=== PATIENT | female | born 1955 | race Caucasian/White ===

== ENCOUNTER 2016-07-29 05:56 | Day surgery (SDC) | payer MEDICARE, OTHER ==
[2016-07-22 12:30] LABS: APPEARANCE,URINE CLEAR; BILIRUBIN,URINE NEGATIVE (NEGATIVE); GLUCOSE, URINE NEGATIVE (NEGATIVE); KETONES,URINE NEGATIVE (NEGATIVE); LEUKOCYTE ESTERASE,URINE NEGATIVE (NEGATIVE); NITRITE,URINE NEGATIVE (NEGATIVE); PROTEIN,URINE NEGATIVE (NEGATIVE); URINE SPECIFIC GRAVITY 1.017; UROBILINOGEN,URINE NEGATIVE mg/dL (<2.0)
[2016-07-22 12:32] LABS: HEMATOCRIT 40.9 % (36.0-47.0); HGB HCT DIFFERENCE 1.1; MEAN CORPUSCULAR HEMOGLOBIN 29.7 pg (27.0-33.4); MEAN CORPUSCULAR HGB CONC 34.2 g/dL (32.0-36.0); MEAN CORPUSCULAR VOLUME 87 fl (80-97); RED BLOOD COUNT 4.71 10^6/uL (3.72-5.28); RED CELL DISTRIBUTION WIDTH 12.2 % (11.5-14.0); WHITE BLOOD COUNT 4.8 10^3/uL (4.0-10.5)
[2016-07-22 12:34] LABS: PROTHROMBIN TIME 12.3 SEC (11.4-15.4)
[2016-07-22 12:35] LABS: PARTIAL THROMBOPLASTIN TIME 25.9 SEC (23.5-35.8)
[2016-07-22 12:59] LABS: ANION GAP 9 (5-19); BLOOD UREA NITROGEN 21 mg/dL (7-20); CALCIUM 9.2 mg/dL (8.4-10.2); CARBON DIOXIDE 31 mmol/L (22-30); CHLORIDE 102 mmol/L (98-107); CREATININE RESULT 0.54 mg/dL (0.52-1.25); GLUCOSE 79 mg/dL (75-110); POTASSIUM 4.1 mmol/L (3.6-5.0); SODIUM 141.8 mmol/L (137-145)
--- NOTE | 2016-07-22 16:59 | EKG REPORT ---
SEVERITY:- NORMAL ECG - SINUS RHYTHM : Confirmed by: Mary Jimenez MD 22-Jul-2016 16:58:17
[2016-07-24 12:31] LABS: ABSOLUTE EOSINOPHILS # (AUTO) 0.1 10^3/uL (0.0-0.6); ABSOLUTE LYMPHOCYTES (AUTO) 2.1 10^3/uL (0.5-4.7); ABSOLUTE MONOCYTES (AUTO) 0.4 10^3/uL (0.1-1.4); ABSOLUTE NEUT (AUTO) 2.7 10^3/uL (1.7-8.2); BASOPHILS % (AUTO) 0.5 % (0-2); EOSINOPHILS % (AUTO) 2.5 % (0-6); HEMATOCRIT 41.4 % (36.0-47.0); HEMOGLOBIN 14.3 g/dL (12.0-15.5); HGB HCT DIFFERENCE 1.5; LYMPHOCYTES % (AUTO) 38.8 % (13-45); MEAN CORPUSCULAR HEMOGLOBIN 29.8 pg (27.0-33.4); MEAN CORPUSCULAR HGB CONC 34.7 g/dL (32.0-36.0); MEAN CORPUSCULAR VOLUME 86 fl (80-97); MONOCYTES % (AUTO) 8.2 % (3-13); RED BLOOD COUNT 4.82 10^6/uL (3.72-5.28); RED CELL DISTRIBUTION WIDTH 12.3 % (11.5-14.0); WHITE BLOOD COUNT 5.3 10^3/uL (4.0-10.5)
[~2016-07-29 05:56] MED LIST: CEFAZOLIN INJ 1 GM VIAL ONE; CEFAZOLIN SODIUM 1 GM in DEXTROSE 5%-WATER 50 ML IV PRN; LACTATED RINGERS 1000 ML IV PRN; LIDOCAINE 0.5% INJ-PF (5 MG/ML) 50 ML SDV SUBCUT PRN
[2016-07-29] MEDS ORDERED: BUPIVACAINE HCL 0.25% /EPINEPHRINE INJ/PF 30 ML SDV ONE (07:01)
[2016-07-29] MEDS ORDERED: LIDOCAINE 1% INJ-PF (10 MG/ML) 30 ML SDV ONE (07:01)
[2016-07-29] MEDS ORDERED: SODIUM BICARBONATE 8.4% INJ 50 MEQ/50 ML DISP.SYRIN ONE (07:01)
[2016-07-29] MEDS ORDERED: FENTANYL CITRATE INJ/PF 100 MCG/2 ML AMPUL ONE (07:11)
[2016-07-29] MEDS ORDERED: EPHEDRINE SULFATE INJ 50 MG/1 ML AMPULE ONE (07:12)
[2016-07-29] MEDS ORDERED: MIDAZOLAM 2 MG/2 ML INJ ONE (07:12)
[2016-07-29] MEDS ORDERED: PROPOFOL INJ 200 MG/20 ML VIAL IV ONE (07:12)
[2016-07-29] MEDS ORDERED: DEXMEDETOMIDINE INJ 80 MCG/20 ML VIAL IV ONE (07:12)
[2016-07-29] MEDS ORDERED: MORPHINE SULFATE 10 MG/ML INJ IV PRN (08:31)
[2016-07-29] MEDS ORDERED: ONDANSETRON HCL INJ/PF 4 MG/2 ML SDV IV PRN ×2 (08:31→09:38)
[2016-07-29] MEDS ORDERED: FENTANYL CITRATE INJ/PF 100 MCG/2 ML AMPUL IV PRN ×3 (08:31)
[2016-07-29] MEDS ORDERED: OXYCODONE-ACETAMINOPHEN 5-325 MG TABLET PO PRN ×3 (08:31→09:37)
[2016-07-29] MEDS ORDERED: DIPHENHYDRAMINE HCL 50 MG/ML VIAL IV PRN (08:31)
[2016-07-29] MEDS ORDERED: MEPERIDINE HCL/PF INJ 25 MG/1 ML DISP.SYRIN IV PRN (08:31)
[2016-07-29] MEDS ORDERED: PROMETHAZINE HCL INJ 25 MG/1 ML VIAL IV PRN ×2 (08:31)
[2016-07-29] MEDS ORDERED: CEFAZOLIN INJ 1 GM VIAL ONE (09:39)
[2016-07-29] MEDS: FENTANYL CITRATE INJ/PF 100 MCG/2 ML AMPUL ONE ×2 (09:40→09:45)
--- NOTE | 2016-07-29 10:36 | OPERATIVE REPORT E ---
Operative Report NAME: CANDELARIA CRESPO : 1955 AGE: 61Y DATE OF SURGERY: 07/29/2016 ROOM: PREOPERATIVE DIAGNOSIS: Lumbar radiculopathy with chronic back and lower extremity pain. POSTOPERATIVE DIAGNOSIS: Lumbar radiculopathy with chronic back and lower extremity pain. OPERATIVE PROCEDURE: Implantation of right and left spinal cord stimulating leads at the level of T7 under fluoroscopic guidance with simultaneous implantation of programmable rechargeable pulse generator under fluoroscopic guidance. SURGEON: ELODIA RICHARDS M.D. SURGICAL ASSISTANTS: Dr. Krystyna Pihllip INDICATIONS: Positive trial to spinal cord stimulation for treatment of chronic intractable pain. COMPLICATIONS: None. ANESTHESIA: MAC. SPECIMENS REMOVED: None. PROCEDURE NOTE: After obtaining informed consent, advising the patient of the risks and benefits including serious neurological injury, bleeding and infection, failure to adequately treat pain, paralysis, allergic reaction and , she was taken to the operating room and placed comfortably in the prone position. The implant site for post generator over the right gluteal region had been predetermined and marked. She was placed comfortably in the prone position. MAC anesthesia was administered. She was then prepped with chlorhexidine times 2 with appropriate drying time of 3 minutes prior to draping. After drape, fluoroscopy was utilized to evaluate the spine and obtain a suitable entrance site. The epidural space to be entered was selected at T12-L1. The incision was made over the inferior portion of L2 to the superior portion of L4. Local anesthesia 1% lidocaine with bicarb was utilized in the midline incision. Simultaneously Dr. Phillip initiated surgical prep and procedure for the right gluteal region for the post generator. Sharp and blunt dissection were performed in both levels to the appropriate location and hemostasis was obtained with electrocautery as necessary. With respect to the lumbar incision, the lumbar spinal fascia was identified. Edith was then placed into the wound to improve visualization. Beginning on the right, a 14-gauge Tuohy needle was inserted under fluoroscopic guidance after the paraspinal musculature and periosteum at the selected level were anesthetized with 1% lidocaine. The epidural space was entered easily with [id number] to saline technique. No heme, cerebrospinal fluid, or paresthesias were noted. It should be noted the patient was awakened at this point. The Octrode lead was advanced in the midline location to approximately the top of T12 and decision was directed towards placing the left Tuohy needle at the same level but on the left side. Again, the epidural space was entered at the T12-L1 region without difficulty with [id number] to saline technique. The additional lead was placed through the left needle and advanced up to the T7 level after checking the position in its lateral view to assure posterior placement. This was satisfactory for both leads. Both leads were then advance sequentially up to the top of T7 and trial stimulation was initiated. Good stimulation was obtained in all desired locations with multiple sets of programming. Decision was made to proceed with the implant. Then, 0-Mersilene pursestrings were placed around each needle and a distal anchor stitch with the same material. Beginning on the left, the needle was removed as was the guidewire with care being taken not to dislodge the electrode from its effective position. The pursestring was secured as was the distal anchor stitch. The hex nut anchor was then placed and secured to the existing ties. This procedure was then repeated on the right, removing the needle and the stylet followed by tightening of the pursestring and placement of the anchors. Both hex nuts were then secured. The leads were then tunneled to the gluteal region at the site that Dr. Phillip had been preparing. It should be noted that local anesthesia was utilized for the tunneling process. Leads were then connected to the generator and the generator was tested for impedance and this was satisfactory. Decision was made to close the wounds after copiously irrigating both of them. Each one was closed with vertical inverted mattress suture using 3-0 Polysorb. The skin was then cleansed one additional time followed by placement of Dermabond tape and cement. When this was tired Telfa dressings were placed over this. The patient was then taken to the PACU for further postoperative care and monitoring. DICTATING PHYSICIAN: ELODIA RICHARDS M.D. [id number] PHY#: [id number] ID: [id number] JOB#: [id number] ACCT: [id number] cc:ELODIA RICHARDS M.D. >
[2016-07-29 11:33] VITALS: BP 117/71
[2016-07-29] MEDS ORDERED: LIDOCAINE 2% INJ-PF (20 MG/ML) 10 ML AMPUL ONE (14:33)
[2016-07-29] MEDS ORDERED: ONDANSETRON HCL INJ/PF 4 MG/2 ML SDV ONE (14:33)
== END 2016-07-29 11:35 | disposition home or self-care (01) ==
LOC: OROUT 05:56
PROVIDERS: ATTEND Pain Medicine Interventional Pain Medicine
PROC: 00HU3MZ Insertion of Neurostimulator Lead into Spinal Canal, Percutaneous Approach (ICD-10-PCS; 2016-07-29)
PROC: 0JH70MZ Insertion of Stimulator Generator into Back Subcutaneous Tissue and Fascia, Open Approach (ICD-10-PCS; principal; 2016-07-29 08:00)
DX: M54.16 Radiculopathy, lumbar region (principal); Z79.899 Other long term (current) drug therapy; F32.9 Major depressive disorder, single episode, unspecified; F41.9 Anxiety disorder, unspecified; Z87.891 Personal history of nicotine dependence
CPT/HCPCS: 93005; 36415 ×2; 85025; 85027; 85610; 85730; 80048; 81001; 72070; 93010; 63685; 63650; C1820; C1778; J2250; J3490 ×5; J0690; J3010; A9270; J2405; J2704; 300

== ENCOUNTER 2016-12-09 10:22 | Day surgery (SDC) | payer MEDICARE, OTHER ==
[2016-11-25 11:29] LABS: HEMATOCRIT 41.3 % (36.0-47.0); HEMOGLOBIN 14.2 g/dL (12.0-15.5); HGB HCT DIFFERENCE 1.3; MEAN CORPUSCULAR HEMOGLOBIN 29.1 pg (27.0-33.4); MEAN CORPUSCULAR HGB CONC 34.5 g/dL (32.0-36.0); MEAN CORPUSCULAR VOLUME 84 fl (80-97); RED CELL DISTRIBUTION WIDTH 12.8 % (11.5-14.0); WHITE BLOOD COUNT 4.7 10^3/uL (4.0-10.5)
[2016-11-25 11:33] LABS: PROTHROMBIN TIME 12.4 SEC (11.4-15.4)
--- NOTE | 2016-11-25 22:12 | EKG REPORT ---
SEVERITY:- NORMAL ECG - SINUS RHYTHM : Confirmed by: Mary Jimenez MD 25-Nov-2016 22:12:20
[~2016-12-09 10:22] MED LIST changes: +CEFAZOLIN 1 GM/D5W RTU 1 GM/50 ML RTUPB IV PRN; -CEFAZOLIN INJ 1 GM VIAL ONE; -CEFAZOLIN SODIUM 1 GM in DEXTROSE 5%-WATER 50 ML IV PRN; -LACTATED RINGERS 1000 ML IV PRN; +LIDOCAINE 0.5% INJ-PF (5 MG/ML) 50 ML SDV INJ PRN; -LIDOCAINE 0.5% INJ-PF (5 MG/ML) 50 ML SDV SUBCUT PRN; +RINGERS SOLUTION,LACTATED 1,000 ML IV PRN
[2016-12-09] MEDS ORDERED: FENTANYL CITRATE INJ/PF 100 MCG/2 ML AMPUL IV PRN ×3 (11:01)
[2016-12-09] MEDS ORDERED: MORPHINE SULFATE 10 MG/ML INJ IV PRN (11:01)
[2016-12-09] MEDS ORDERED: MEPERIDINE HCL/PF INJ 25 MG/1 ML DISP.SYRIN IV PRN (11:01)
[2016-12-09] MEDS ORDERED: OXYCODONE-ACETAMINOPHEN 5-325 MG TABLET PO PRN ×2 (11:01)
[2016-12-09] MEDS ORDERED: DIPHENHYDRAMINE HCL 50 MG/ML VIAL IV PRN (11:01)
[2016-12-09] MEDS ORDERED: PROMETHAZINE HCL INJ 25 MG/1 ML VIAL IV PRN ×2 (11:01)
[2016-12-09] MEDS ORDERED: KETAMINE HCL INJ 500 MG/10 ML VIAL ONE (11:51)
[2016-12-09] MEDS ORDERED: FENTANYL CITRATE INJ/PF 250 MCG/5 ML AMPULE ONE (11:51)
[2016-12-09] MEDS ORDERED: MIDAZOLAM 2 MG/2 ML INJ ONE (11:52)
[2016-12-09] MEDS ORDERED: PROPOFOL INJ 200 MG/20 ML VIAL IV ONE (11:54)
[2016-12-09] MEDS ORDERED: ACETAMINOPHEN 100 ML IV ONE (11:54)
[2016-12-09] MEDS ORDERED: MORPHINE SULFATE 10 MG/ML INJ ONE (13:21)
--- NOTE | 2016-12-09 13:23 | Operative Report ---
Operative Report DATE OF SURGERY: 12/09/16 PREOPERATIVE DIAGNOSIS: Right carpal tunnel syndrome POSTOPERATIVE DIAGNOSIS: Same OPERATION: Right carpal tunnel release ANESTHESIA: IV-Regional TISSUE REMOVED OR ALTERED: None COMPLICATIONS: None PROCEDURE: The correct side for carpal tunnel release was identified with the patient. The patient was then brought into the operating room and placed on the operating room table in a supine position. A [place] block was instilled by anesthesia. The tourniquet was set at approximately 270mm Hg. The arm was then prepped with a Betadine scrub and Betadine solution and draped in a sterile aseptic manner. An outlined overlying the carpal tunnel was made and a small zig zag across the wrist was outlined. An incision was then made with a 15 blade. This was carried down through the superficial palmar fascia. The palmaris brevis was identified and was coagulated as we proceeded deeper. Dissection continued until the transverse carpal ligament was exposed. Using a [place] blade a small dissection was performed to get past the surface of the transverse carpal ligament and enter into the carpal canal. After there was exposure a Moran elevator was placed to protect the median nerve. Using the freer elevator and the tunnel while protecting the nerve [id number] the transverse carpal ligament was released distally and proximally. Throughout the dissection great caution was used to identify any anomalous branching of the median nerve and motor branch. Along the wrist a small zig zag was carried to the distal most portion of the forearm. We then went ahead and freed the distal and the brachial fascia of the forearm in order to minimize any areas of possible entrapment in the future.. After the dissection was completed confirmation of release into the distal forearm of the antebrachial fascia as well as distally showing the dark yellow fat of the palm. The arch was identified and was not jeopardized throughout the dissection. An epineurotomy was performed of along the course of the median nerve so that there will be no further areas of any compression to the nerve. Throughout the case the bipolar was used for hemostasis . Betadine saline irrigation was performed in the operative field. Once good hemostasis was obtained the closure was then performed using 4-0 and Subjective: No complaints Subjective: No complaints except mild discomfort Objective: Vital signs stable afebrile No bleeding Dressing intact Assessment and plan: Doing well. Elevate the operative site. Resume medications. Take antibiotics for 1 day Follow-up Full instructions were given to the patient and family and they understand Portions of this note may be dictated using [employer] voice recognition software. Occasional variations and spelling and vocabulary could be possible and are unintentional. Additionally, there is a chance that some errors may not be caught or corrected. Please notify the offer of any discrepancies noted or if any statements are unclear. Prolene horizontal mattress and simple sutures. The tourniquet was then released and there was good blood flow returned to the fingers and no signs of any active bleeding at the incision line. Bacitracin was applied then Xeroform was applied and 4 x 4's were placed. A splint was then applied with web roll and Ortho-Glass with Juan wraps. Patient was then reversed from anesthesia and taken to the PAR for recovery. This dictation was performed with straight and actually speaking. If there are any irregularities please contact the dictating physician.
--- NOTE | 2016-12-09 13:26 | PDOC DISCHARGE SUMMARY ---
Discharge Summary (SDC) - Discharge Final Diagnosis: Right carpal tunnel syndrome Date of Surgery: 12/09/16 Condition: Good Treatment or Instructions: Leave the top dressing on for 2 days, then removed. Leave the steri-strip tapes on for 5 days, then removal. Then cleaning wound with peroxide and apply Neosporin/bacitracin 3 times per day. Antibiotics for 1 day, then discontinue. Elevate operative area to decrease swelling. Do not strain, or lift heavy objects. Call for excessive bleeding, increased temperature of 101, uncontrolled pain, or excessive nausea or vomiting. You may reach Dr. Napier through his office at [phone]. In the event of an emergency after hours, then contact Dr. Napier through [facility]. Return to the office for a postop check on . The time will be scheduled by the nursing staff of [facility] prior to discharge. Please give the patient a copy of their labs and EKG so they can bring this to their PMD. Thank you Portions of this note may be dictated using [employer] voice recognition software. Occasional variations and spelling and vocabulary could be possible and are unintentional. Additionally, there is a chance that some errors may not be caught or corrected. Please notify the offer of any discrepancies noted or if any statements are unclear. Discharge Diet: As Tolerated Discharge Activity: Activity As Tolerated - Discharge to home
[2016-12-09] MEDS ORDERED: FENTANYL CITRATE INJ/PF 100 MCG/2 ML AMPUL ONE (13:39)
[2016-12-09] MEDS ORDERED: IBUPROFEN INJ 800 MG/8 ML VIAL IV ONE (13:49)
[2016-12-09] MEDS ORDERED: HYDROMORPHONE HCL INJ/PF 2 MG/ML AMPULE ONE (13:51)
[2016-12-09] MEDS ORDERED: RINGERS SOLUTION,LACTATED 500 ML IV ONE (14:30)
[2016-12-09] MEDS ORDERED: PROMETHAZINE HCL INJ 50 MG/1 ML VIAL IM ONE (14:50)
[2016-12-09] MEDS ORDERED: ONDANSETRON HCL INJ/PF 4 MG/2 ML SDV ONE (15:13)
[2016-12-09] MEDS ORDERED: GLYCOPYRROLATE INJ 0.4 MG/2 ML VIAL ONE (15:13)
[2016-12-09 16:23] VITALS: BP 121/77
== END 2016-12-09 16:30 | disposition home or self-care (01) ==
LOC: OROUT 10:22
PROVIDERS: ATTEND Plastic Surgery
PROC: 01N50ZZ Release Median Nerve, Open Approach (ICD-10-PCS; principal; 2016-12-09 12:30)
DX: G56.01 Carpal tunnel syndrome, right upper limb (principal); Z79.899 Other long term (current) drug therapy; M19.90 Unspecified osteoarthritis, unspecified site
CPT/HCPCS: 93005; 36415; 85027; 85610; 85730; 93010; 64721; J2250; J0690; J3010 ×2; J3490; J2270; J1170; J2550; J2405; J2704; J0131; J1741; 1810; 1830

== ENCOUNTER 2017-04-16 07:40 | Day surgery (SDC) | payer MEDICARE, OTHER ==
[~2017-04-16 07:40] MED LIST changes: -CEFAZOLIN 1 GM/D5W RTU 1 GM/50 ML RTUPB IV PRN; +EPINEPHRINE INJ 1 MG/10 ML DISP.SYRIN ONE; +FLUMAZENIL INJ 0.5 MG/5 ML VIAL ONE; +GLUCAGON,HUMAN RECOMB 1 MG INJ ONE; +GLYCOPYRROLATE INJ 0.4 MG/2 ML VIAL ONE; -LIDOCAINE 0.5% INJ-PF (5 MG/ML) 50 ML SDV INJ PRN; +MIDAZOLAM 2 MG/2 ML INJ ONE; +NALOXONE HCL INJ/PF 0.4 MG/1 ML SDV ONE; +ONDANSETRON HCL INJ/PF 4 MG/2 ML SDV ONE; -RINGERS SOLUTION,LACTATED 1,000 ML IV PRN
[2017-04-16] MEDS: MIDAZOLAM 2 MG/2 ML INJ ONE ×2 (08:48→09:10)
[2017-04-16] MEDS: FENTANYL CITRATE INJ/PF 100 MCG/2 ML AMPUL ONE ×2 (08:50→09:12)
[2017-04-16 10:19] VITALS: BP 117/69
--- NOTE | 2017-04-16 10:39 | Operative Report ---
Operative Report DATE OF SURGERY: 04/16/17 PREOPERATIVE DIAGNOSIS: Need for screening colonoscopy POSTOPERATIVE DIAGNOSIS: Sigmoid diverticulosis otherwise normal colon OPERATION: Total colonoscopy to cecum photodocumentation SURGEON: ALEIDA LOMAX ANESTHESIA: Moderate Sedation TISSUE REMOVED OR ALTERED: None COMPLICATIONS: None ESTIMATED BLOOD LOSS: None INTRAOPERATIVE FINDINGS: See below PROCEDURE: Obtaining informed consent the patient was taken from the preoperative holding area to the main endoscopy suite where monitoring devices were attached to the patient. Plan and surgical timeout were conducted The patient was placed in the left lateral decubitus position with knees to chest. A perianal examination was performed. There was no visible or palpable anorectal pathology. Sphincter tone was felt to be normal. The flexible adult colonoscope was advanced through the anal rectal canal, all the way to the cecum. Utilization of the cecum was achieved and the ileocecal valve, the appendiceal orifice and transillumination of the anterior abdominal wall. This was an excellent study on the well-prepped bowel. The colonoscope was withdrawn slowly and methodically checked and the mucosa carefully. There was no evidence of tumor, stricture, bleeding or polyp. There is scattered diverticulosis of the sigmoid colon;The scope was slowly withdrawn through the anal rectal canal. Complete visualization of the rectum was achieved with photodocumentation. The scope was withdrawn to the patient's anus. The patient tolerated the procedure well and was taken to the recovery area in stable condition. Her guidelines for average risk patient for colorectal carcinoma, patient will be an appropriate candidate for follow-up colonoscopy in 10 years.
--- NOTE | 2017-04-16 10:40 | PDOC DISCHARGE SUMMARY ---
Discharge Summary (SDC) - Discharge Final Diagnosis: Normal colon; sigmoid diverticulosis Date of Surgery: 04/16/17 Discharge Date: 04/16/17 Condition: Good Forms: Discharge POC-Adult, Sedation D/C Instructions Treatment or Instructions: [address] [address] POST ENDOSCOPY DISCHARGE INSTRUCTIONS 1. Diet: Start clear liquids that a regular diet as tolerated. 2. Resume all preoperative medications. All oral anticoagulants and aspirins can be resumed 24 hours after procedure. 3. If a polypectomy was performed some bleeding per rectum may occur. This should stop within 3 days. If not, please contact the office. 4. If you had a colonoscopy you may experience some bloating and delayed return of normal bowel function for several days, your regular bowel movement pattern should resume within a week. 5. Please contact [facility] at to make an appointment with Dr. Ibarra for 1 to 3 weeks following procedure. 6. If you have any questions or concerns regarding your care,treatment plan or follow up, please contact our office. 7. Per clinical guidelines we recommend you undergo a repeat colonoscopy in 10 years. Referrals: ALEIDA IBARRA MD [ACTIVE STAFF] - 04/30/17 2:15 pm Discharge Activity: Balance Activity w/Rest, No Driving Home Care Assistance: None Needed Report the Following to Your Physician Immediately: Shortness of Breath, Nausea , Increase in Pain, Fever over 101 Degrees, Unusual Bleeding
== END 2017-04-16 10:23 | disposition home or self-care (01) ==
LOC: END 07:40
PROVIDERS: ATTEND Surgery
PROC: 0DJD8ZZ Inspection of Lower Intestinal Tract, Via Natural or Artificial Opening Endoscopic (ICD-10-PCS; principal; 2017-04-16 08:15)
DX: Z12.11 Encounter for screening for malignant neoplasm of colon (principal); K57.30 Diverticulosis of large intestine without perforation or abscess without bleeding; F32.9 Major depressive disorder, single episode, unspecified; R00.2 Palpitations; Z79.899 Other long term (current) drug therapy; Z96.651 Presence of right artificial knee joint
CPT/HCPCS: 45378; J2250; J3010; G0121; J0171; J1610; J2310; J2405; J3490

== ENCOUNTER 2020-05-30 15:04 | Emergency (ER) | payer MEDICARE, OTHER ==
--- NOTE | 2020-05-30 16:47 | ER Document Report ---
ED Medical Screen (RME) - General Chief Complaint: Chest Pain > 30 Stated Complaint: HEADACHE,SHORT OF BREATH Time Seen by Provider: 05/30/20 16:40 Primary Care Provider: PONCE GONSALES MD [Primary Care Provider] - Follow up as needed Mode of Arrival: Ambulatory Information source: Patient Notes: 65-year-old female presented to ED for some chest pressure pain shortness of breath hard to get a deep breath and a headache behind the eyes. She states is been on and off for a while. She states she did get a Covid test on 05/28/2020 and was negative. She states her was sick at the time and so they both got tested. She is alert oriented respirations regular nonlabored speaking in full sentences. We will get chest pain protocol started and she will be seen by another provider. I have greeted and performed a rapid initial assessment of this patient. A comprehensive ED assessment and evaluation of the patient, analysis of test results and completion of medical decision making process will be conducted by an additional ED providers. TRAVEL OUTSIDE OF THE [place] IN LAST 30 DAYS: No - Related Data Allergies/Adverse Reactions: No Known Allergies Allergy (Verified 05/30/20 16:41) Home Medications: anxiety/depression medicaitons Past Medical History - Social History Frequency of alcohol use: Rare - Past Medical History Cardiac Medical History: Denies: Hx Coronary Artery Disease, Hx Heart Attack, Hx Hypertension Pulmonary Medical History: Denies: Hx Asthma, Hx Bronchitis, Hx COPD, Hx Pneumonia Neurological Medical History: Denies: Hx Cerebrovascular Accident, Hx Seizures Musculoskeltal Medical History: Reports Hx Arthritis - MILD Past Surgical History: Denies: Hx Hysterectomy - Immunizations Hx Diphtheria, Pertussis, Tetanus Vaccination: Yes Physical Exam - Vital signs Vitals: Temp Pulse Resp BP Pulse Ox 98.1 F 93 18 129/82 H 97 05/30/20 15:09 05/30/20 15:09 05/30/20 15:09 05/30/20 15:09 05/30/20 15:09 Course - Vital Signs Vital signs: Temp Pulse Resp BP Pulse Ox 98.1 F 93 18 129/82 H 97 05/30/20 15:09 05/30/20 15:09 05/30/20 15:09 05/30/20 15:09 05/30/20 15:09 Doctor's Discharge - Discharge Referrals: PONCE GONSALES MD [Primary Care Provider] - Follow up as needed
[2020-05-30 17:24] LABS: ABSOLUTE EOSINOPHILS # (AUTO) 0.1 10^3/uL (0.0-0.6); ABSOLUTE LYMPHOCYTES (AUTO) 1.7 10^3/uL (0.5-4.7); ABSOLUTE MONOCYTES (AUTO) 0.4 10^3/uL (0.1-1.4); ABSOLUTE NEUT (AUTO) 2.4 10^3/uL (1.7-8.2); BASOPHILS % (AUTO) 0.7 % (0-2); EOSINOPHILS % (AUTO) 1.9 % (0-6); HEMATOCRIT 43.4 % (36.0-47.0); HEMOGLOBIN 14.9 g/dL (12.0-15.5); LYMPHOCYTES % (AUTO) 36.4 % (13-45); MEAN CORPUSCULAR HEMOGLOBIN 29.8 pg (27.0-33.4); MEAN CORPUSCULAR HGB CONC 34.4 g/dL (32.0-36.0); MEAN CORPUSCULAR VOLUME 87 fl (80-97); MONOCYTES % (AUTO) 8.8 % (3-13); PLATELET COUNT 203 10^3/uL (150-450); RED BLOOD COUNT 5.01 10^6/uL (3.72-5.28); RED CELL DISTRIBUTION WIDTH 13.4 % (11.5-14.0); SEGMENTED NEUTROPHILS % (AUTO) 52.2 % (42-78); TOTAL CELLS COUNTED % (AUTO) 100 %; WHITE BLOOD COUNT 4.6 10^3/uL (4.0-10.5)
[2020-05-30 17:43] LABS: ALBUMIN 4.4 g/dL (3.5-5.0); ALKALINE PHOSPHATASE 58 U/L (38-126); ANION GAP 9 (5-19); ASPARTATE AMINO TRANSFERASE 30 U/L (14-36); BILIRUBIN,TOTAL 0.3 mg/dL (0.2-1.3); BLOOD UREA NITROGEN 22 mg/dL (7-20); CALCIUM 9.5 mg/dL (8.4-10.2); CARBON DIOXIDE 28 mmol/L (22-30); CHLORIDE 104 mmol/L (98-107); GLUCOSE 96 mg/dL (75-110); POTASSIUM 4.9 mmol/L (3.6-5.0); TOTAL PROTEIN 7.3 g/dL (6.3-8.2)
--- NOTE | 2020-05-30 18:05 | RADIOLOGY REPORT (SQ) ---
EXAM DESCRIPTION: CHEST SINGLE VIEW IMAGES COMPLETED DATE/TIME: 05/30/2020 5:55 pm REASON FOR STUDY: cough short of breath COMPARISON: None. EXAM PARAMETERS: NUMBER OF VIEWS: One view. TECHNIQUE: Single frontal radiographic view of the chest acquired. RADIATION DOSE: NA LIMITATIONS: None. FINDINGS: LUNGS AND PLEURA: No opacities, masses or pneumothorax. No pleural effusion. MEDIASTINUM AND HILAR STRUCTURES: No masses. Contour normal. HEART AND VASCULAR STRUCTURES: Heart normal in size. Normal vasculature. BONES: No acute findings. HARDWARE: None in the chest. OTHER: Neurostimulator leads overlie the mid dorsal spine. IMPRESSION: NO ACUTE RADIOGRAPHIC FINDING IN THE CHEST. TECHNICAL DOCUMENTATION: JOB ID: [id number] 2010 [employer]- All Rights Reserved Reading location - IP/workstation name: [email or web address]
[2020-05-30] MEDS ORDERED: ACETAMINOPHEN 325 MG TABLET PO ONE (18:42)
--- NOTE | 2020-05-30 18:50 | ER Document Report ---
ED General - General Chief Complaint: Shortness Of Breath Stated Complaint: HEADACHE,SHORT OF BREATH Time Seen by Provider: 05/30/20 16:40 Primary Care Provider: PONCE GONSALES MD [Primary Care Provider] - Follow up as needed Mode of Arrival: Ambulatory TRAVEL OUTSIDE OF THE [place] IN LAST 30 DAYS: No - HPI Notes: Patient is a 65 y/o female with a hx of migraines that is COVID + who presents with cough and headache for the past four days. She was tested for COVID two days ago which was positive. She reports dry cough and that her headache is located behind her eyes. She states her headache today is similar to her migraines and she notes relief with sinus headache medication and ibuprofen. She also reports a "tickle in her throat", and chest discomfort. She denies shortness of breath, fever, nausea, vomiting, diarrhea, and abdominal pain. - Related Data Allergies/Adverse Reactions: No Known Allergies Allergy (Verified 05/30/20 16:41) Home Medications: anxiety/depression medicaitons Past Medical History - General Information source: Patient - Social History Smoking Status: Former Smoker Frequency of alcohol use: Rare Family History: Reviewed & Not Pertinent Patient has homicidal ideation: No - Past Medical History Cardiac Medical History: Denies: Hx Coronary Artery Disease, Hx Heart Attack, Hx Hypertension Pulmonary Medical History: Denies: Hx Asthma, Hx Bronchitis, Hx COPD, Hx Pneumonia Neurological Medical History: Denies: Hx Cerebrovascular Accident, Hx Seizures Musculoskeletal Medical History: Reports Hx Arthritis - MILD Psychiatric Medical History: Reports: Hx Depression - anxiety Past Surgical History: Reports: Hx Hysterectomy, Hx Orthopedic Surgery - nay knee replacements/right carpal tunnel/c5-c6 fusion/spinal cord stimulat - Immunizations Hx Diphtheria, Pertussis, Tetanus Vaccination: Yes Review of Systems - Review of Systems Constitutional: No symptoms reported EENT: See HPI Cardiovascular: No symptoms reported Respiratory: See HPI Gastrointestinal: No symptoms reported Genitourinary: No symptoms reported Female Genitourinary: No symptoms reported Musculoskeletal: No symptoms reported Skin: No symptoms reported Hematologic/Lymphatic: No symptoms reported Neurological/Psychological: No symptoms reported Physical Exam - Vital signs Vitals: Temp Pulse Resp BP Pulse Ox 98.1 F 93 18 129/82 H 97 05/30/20 15:09 05/30/20 15:09 05/30/20 15:09 05/30/20 15:09 05/30/20 15:09 - Notes Notes: PHYSICAL EXAMINATION: VITALS: Vitals reviewed and within normal limits. GENERAL: Well-appearing, well-nourished and in no acute distress. HEAD: Atraumatic, normocephalic. EYES: Pupils equal, round, and reactive to light, extraocular movements intact, sclera anicteric, conjunctiva are normal. ENT: Nares patent. Moist mucous membranes. Oropharynx clear without exudates. NECK: Normal range of motion, supple without lymphadenopathy. LUNGS: Breath sounds clear to auscultation bilaterally and equal. No wheezes, rales, or rhonchi. HEART: Regular, rate, and rhythm without murmurs. ABDOMEN: Soft, nontender, normoactive bowel sounds. No guarding, no rebound. No masses appreciated. EXTREMITIES: Normal range of motion, no pitting or edema. No cyanosis. NEUROLOGICAL: No focal neurological deficits. Moves all extremities spontaneously and on command. PSYCH: Normal mood, normal affect. SKIN: Warm, Dry, normal turgor, no rashes or lesions noted. Course - Re-evaluation Re-evalutation: Patient is a 65 y/o female is COVID + who presents with cough and headache for the past four days. She was tested for COVID two days ago which was positive. Vital signs are normal and stable. CBC and CMP are unremarkable and within no rmal limits. Troponin is negative. EKG shows normal sinus rhythm. Chest x-ray is negative. I believe patient's symptoms are related to her being infected with Covid virus. I advised that she take ibuprofen Tylenol as needed for pain, drink plenty of fluids and quarantine until her symptoms have completely resolved. Low clinical suspicion for any acute life-threatening etiology based on exam, history and workup including pneumonia, HI, PE, stroke or head bleed. Return precautions and follow-up instructions given. Patient understands and is in agreement with the plan. Patient will be discharged home. - Vital Signs Vital signs: Temp Pulse Resp BP Pulse Ox 98.3 F 82 18 124/78 99 05/30/20 19:03 05/30/20 19:03 05/30/20 19:03 05/30/20 19:03 05/30/20 19:03 - Laboratory Result Diagrams: 05/30/20 17:05 05/30/20 17:05 Laboratory results interpreted by me: 05/30/20 17:05 BUN 22 H - EKG Interpretation by Me Additional EKG results interpreted by me: Sinus rhythm with a rate of 75. QTc 438. Normal axis. No T wave inversions or ST segment changes in consecutive leads. Discharge - Discharge Clinical Impression: COVID-19, Cough, Nasal congestion Condition: Stable Disposition: HOME, SELF-CARE Instructions: COVID-19 Guidance for Persons Under Investigation Additional Instructions: Drink plenty of fluids and take tylenol and ibuprofen as needed for symptom relief. Quarantine until your symptoms have resolved and for 72 hours afterwards. Return if your symptoms or if you develop shortness of breath, chest pain, fever, or persistent vomiting. Referrals: PONCE GONSALES MD [Primary Care Provider] - Follow up as needed
[2020-05-30 19:05] VITALS: BP 124/78
--- NOTE | 2020-05-30 19:28 | EKG REPORT ---
SEVERITY:- NORMAL ECG - SINUS RHYTHM : Confirmed by: Mary Jimenez MD 30-May-2020 19:27:37
== END 2020-05-30 19:03 | disposition home or self-care (01) ==
LOC: ER 15:04
DX: U07.1 COVID-19 (principal); R07.9 Chest pain, unspecified; R06.02 Shortness of breath; R51.9 Headache, unspecified; R09.81 Nasal congestion
CPT/HCPCS: 93005; 99285; 36415; 85025; 80053; 84484; 71045; 93010; A9270

== ENCOUNTER 2020-06-04 12:49 | Emergency (ER) | payer MEDICARE, OTHER ==
--- NOTE | 2020-06-04 16:42 | RADIOLOGY REPORT (SQ) ---
EXAM DESCRIPTION: CT CHEST WITHOUT IMAGES COMPLETED DATE/TIME: 06/04/2020 4:33 pm REASON FOR STUDY: covid +, sob COMPARISON: Chest x-ray done earlier the same day. TECHNIQUE: CT scan performed of the chest without intravenous contrast. Images reviewed with lung, soft tissue and bone windows. Reconstructed coronal and sagittal MPR images reviewed. All images st ored on PACS. All CT scanners at this facility use dose modulation, iterative reconstruction, and/or weight based d osing when appropriate to reduce radiation dose to as low as reasonably achievable (ALARA). [facility]: Dose Right [facility]: CareDose [facility]: Dose Right [facility]: Teradose 4D [facility]: Holganix RADIATION DOSE: CT Rad equipment meets quality standard of care and radiation dose reduction techniq ues were employed. CTDIvol: 6.7 mGy. DLP: 264 mGy-cm. mGy. LIMITATIONS: No technical limitations. FINDINGS: LUNGS AND PLEURA: Patchy peripheral airspace disease in the right and left upper lobes in both lung bases. Changes are most prominent in the left upper lobe. Findings are consistent with th e diagnosis of covid 19 pneumonia. HILAR AND MEDIASTINAL STRUCTURES: No identified masses or abnormal nodes. No obvious aneurysm. HEART AND VASCULAR STRUCTURES: No aneurysm. No pericardial effusion. UPPER ABDOMEN: No significant findings. Limited exam. THYROID AND OTHER SOFT TISSUES: No masses. No adenopathy. BONES: No significant finding. HARDWARE: None in the chest. OTHER: No other significant findings. IMPRESSION: Patchy upper and lower lobe peripheral airspace disease which demonstrates a ground-glas s opacity. Findings are consistent with Covid 19 pneumonia. TECHNICAL DOCUMENTATION: JOB ID: [id number] Quality ID # [id number]: Final reports with documentation of one or more dose reduction techniques (e.g., Au tomated exposure control, adjustment of the mA and/or kV according to patient size, use of iterative reconstruction technique) 2010 [employer]- All Rights Reserved Reading location - IP/workstation name: [email or web address]
--- NOTE | 2020-06-04 17:51 | ER Document Report ---
ED General - General Chief Complaint: Shortness Of Breath Stated Complaint: COVID +CHEST PRESSURE Time Seen by Provider: 06/04/20 15:52 Primary Care Provider: PONCE GONSALES MD [Primary Care Provider] - Follow up as needed Mode of Arrival: Ambulatory Information source: Patient TRAVEL OUTSIDE OF THE [place] IN LAST 30 DAYS: No - HPI Notes: Patient presents complaining of shortness of breath and body aches. States she tested positive for Covid on 27 May. She then came to emergency room on the and was placed on symptomatic treatment but has not improved. She describes the shortness of breath and dry cough is moderate. Is worse with exertion better with rest. Is intermittent. She states the fever chills body a ches have improved. - Related Data Allergies/Adverse Reactions: No Known Allergies Allergy (Verified 06/04/20 14:28) Past Medical History - General Information source: Patient - Social History Smoking Status: Never Smoker Frequency of alcohol use: None Drug Abuse: None Family History: Reviewed & Not Pertinent - Past Medical History Cardiac Medical History: Denies: Hx Coronary Artery Disease, Hx Heart Attack, Hx Hypertension Pulmonary Medical History: Denies: Hx Asthma, Hx Bronchitis, Hx COPD, Hx Pneumonia Neurological Medical History: Denies: Hx Cerebrovascular Accident, Hx Seizures Musculoskeletal Medical History: Reports Hx Arthritis - MILD Psychiatric Medical History: Reports: Hx Depression - anxiety Past Surgical History: Reports: Hx Hysterectomy, Hx Orthopedic Surgery - nay knee replacements/right carpal tunnel/c5-c6 fusion/spinal cord stimulat - Immunizations Hx Diphtheria, Pertussis, Tetanus Vaccination: Yes Review of Systems - Review of Systems Constitutional: Chills, Fever, Weakness, Recent illness Cardiovascular: denies: Chest pain, Palpitations Respiratory: Cough, Short of breath -: Yes All other systems reviewed and negative Physical Exam - Vital signs Vitals: Temp Pulse Resp BP Pulse Ox 98.1 F 79 20 118/75 98 06/04/20 13:13 06/04/20 13:13 06/04/20 13:13 06/04/20 13:13 06/04/20 13:13 Interpretation: Normal - General General appearance: Appears well, Alert - HEENT Head: Normocephalic, Atraumatic Eyes: Normal - Respiratory Respiratory status: No respiratory distress Breath sounds: Normal - Cardiovascular Rhythm: Regular Notes: No JVD - Abdominal Inspection: Normal Distension: No distension - Back Back: Normal, Nontender - Extremities General upper extremity: Normal inspection, Nontender, Normal color, Normal ROM, Normal temperature General lower extremity: Normal inspection, Nontender, Normal color, Normal ROM, Normal temperature, Normal weight bearing. No: Annie's sign - Neurological Neuro grossly intact: Yes Cognition: Normal Orientation: AAOx4 [place] Coma Scale Eye Opening: Spontaneous [place] Coma Scale Verbal: Oriented [place] Coma Scale Motor: Obeys Commands Radha Coma Scale Total: 15 Speech: Normal Motor strength normal: LUE, RUE, LLE, RLE Sensory: Normal - Psychological Associated symptoms: Normal affect, Normal mood - Skin Skin Moisture: Dry Skin Color: Normal Course - Re-evaluation Re-evalutation: 06/04/20 17:48 Patient has a known positive Covid test. Patient's vital signs are stable and she is not hypoxic or tachypneic. Given that her current inpatient rate of Covid is 25% I believe that patient would do best if she has a trial of at home therapy at this time. - Vital Signs Vital signs: Temp Pulse Resp BP Pulse Ox 98.1 F 79 20 118/75 98 06/04/20 13:13 06/04/20 13:13 06/04/20 13:13 06/04/20 13:13 06/04/20 13:13 - Diagnostic Test Radiology reviewed: Image reviewed, Reports reviewed Discharge - Discharge Clinical Impression: Pneumonia due to COVID-19 virus Condition: Stable Disposition: HOME, SELF-CARE Instructions: COVID-19 Guidance for Persons Under Investigation Additional Instructions: Please quarantine yourself for the next 10 days. Please return if problems with shortness of breath or other concerns. Please take an [id number] vitamin that contains zinc, vitamin C, and vitamin D. Please also try to take melatonin at night. Prescriptions: Prednisone [Deltasone 20 mg Tablet] 3 tab PO DAILY 5 Days tablet Azithromycin [Zithromax 250 mg Tablet] 250 mg PO ASDIR PRN #6 tablet PRN Reason: Forms: Return to Work Referrals: PONCE GONSALES MD [Primary Care Provider] - Follow up in 1 week
[2020-06-04 18:01] VITALS: BP 132/77
== END 2020-06-04 18:00 | disposition home or self-care (01) ==
LOC: ER 12:49
DX: U07.1 COVID-19 (principal); J12.89 Other viral pneumonia; R06.02 Shortness of breath; M79.10 Myalgia, unspecified site
CPT/HCPCS: 71250; 99284